=== PATIENT | female | born 1965 | race Caucasian/White ===

== ENCOUNTER 2024-02-02 10:22 | Emergency (ER) | payer BC ==
[2024-02-02 10:37] VITALS: TEMP 98.3
[2024-02-02] MEDS ORDERED: Sodium Chloride 0.9% 1000 ML 1,000 ML IV SCH (11:00)
[2024-02-02] MEDS ORDERED: Magnesium 1 Gm / 100 Ml D5W*** 100 ML IV ONE ×2 (11:02→11:42)
[2024-02-02] MEDS ORDERED: Sodium Chloride 0.9% 250 ML 250 ML IV ONE (11:02)
[2024-02-02] MEDS ORDERED: TRANDATE 20 MG/4 ML SYRINGE IV ONE (11:02)
[2024-02-02] MEDS: Sodium Chloride 0.9% 250 ML 250 ML IV SCH (11:05)
[2024-02-02] MEDS: TRANDATE 20 MG/4 ML SYRINGE IV ONE (11:05)
[2024-02-02] MEDS: Magnesium 1 Gm / 100 Ml D5W*** 100 ML IV SCH (11:06)
[2024-02-02 11:10] LABS: Absolute Neutrophil Ct (ANC) 4.12 x10^3/uL (1.56-6.13); BASOPHIL % 0.6 % (0.1-1.2); Basophil (Absolute #) 0.04 x10^3/uL (0.01-0.08); Eosinophil % 1.4 % (0.7-5.8); Eosinophil (Absolute #) 0.09 x10^3/uL (0.04-0.36); Hematocrit 44.1 % (34.1-44.9); Hemoglobin 14.6 g/dL (11.2-15.7); IMMATURE GRAN # 0.01 x10^3u/L (0.001-0.031); IMMATURE GRAN % 0.2 % (0.001-0.429); Lymphocyte (Absolute #) 1.96 x10^3/uL (1.18-3.74); Lymphocytes % 29.7 % (19.3-51.7); Mean Cell Volume 86.5 fL (79.4-94.8); Mean Corpuscular Hemoglobin 28.6 pg (25.6-32.2); Mean Corpuscular Hgb Concent. 33.1 g/dL (32.2-35.5); Monocyte (Absolute #) 0.38 x10^3/uL (0.24-0.86); Monocytes % 5.8 % (4.7-12.5); Neutrophil % 62.3 % (34.0-71.1); Platelet Count 259 x10^3/uL (182-369); Red Cell Distribution Width 13.5 % (11.7-14.4); White Blood Count 6.6 x10^3/uL (3.98-10.04)
--- NOTE | 2024-02-02 11:13 | ERPHSYRPT ---
- History of Present Illness Time Seen by Provider: 02/02/24 11:09 Source: patient, family Exam Limitations: no limitations Patient Subjective Stated Complaint: pt states that her heart has been racing for a couple of days Triage Nursing Assessment: Pt was brought to the ER by her , hypertensive, tachycardic, denies pain, pulses normal, skin n/w/d, denies chest pain, reports having a problem with tachycardia while in high school, pt took some sudafed on Saturday which started up the tachycardia, denies any other issues and doesn't appear to be in any distress Physician History: pt states that her heart has been racing for a couple of days Patient is 58-year-old female otherwise healthy except for some environmental and seasonal allergy recently moved from [place], started having some sinus problems so she started taking Sudafed for last 1 week and for last 2 days she started having a feeling that her heart has been racing. She states that she was having a problem with rapid heart rate while she was in school. Otherwise except for history of migraine few years ago which was taken care of by low-salt diet patient has been perfectly healthy according to her and her . She denies any chest pain nausea vomiting diaphoresis headache swelling on the legs abdominal pain or double vision. Timing/Duration: day(s) (Two days) Activities at Onset: none Severity of Pain-Max: none Severity of Pain-Current: none Modifying Factors: Improves With: nothing Nitro Today/Relief: no nitro taken today Aspirin Treatment Today: no aspirin today Associated Symptoms: denies symptoms Prior Chest Pain/Cardiac Workup: no prior chest pain Allergies/Adverse Reactions: eucalyptus Allergy (Verified 02/02/24 10:38) Hx Influenza Vaccination/Date Given: No Hx Pneumococcal Vaccination/Date Given: No Travel Risk - International Travel Have you traveled outside of the country in past 3 weeks: No - Emerging Infectious Disease Are you exhibiting symptoms associated with any current EIDs: No - Review of Systems Constitutional: No Fever, No Chills Eyes: No Symptoms Ears, Nose, & Throat: No Symptoms Respiratory: No Cough, No Dyspnea Cardiac: Palpitations, No Chest Pain, No Edema, No Syncope Abdominal/Gastrointestinal: No Abdominal Pain, No Nausea, No Vomiting, No Diarrhea Genitourinary Symptoms: No Dysuria Musculoskeletal: No Back Pain, No Neck Pain Skin: No Rash Neurological: No Dizziness, No Focal Weakness, No Sensory Changes Psychological: No Symptoms Endocrine: No Symptoms All Other Systems: Reviewed and Negative - Past Medical History Pertinent Past Medical History: No - Past Surgical History Past Surgical History: Yes Female Surgical History: Section Other Surgical History: rotator cuff, - Social History Smoking Status: Never smoker Exposure to second hand smoke: No Drug Use: none - Social Determinants of Health Will the patient participate in the screening: Yes Do you worry about a steady place to live?: No Do you have any problems with any of the following?: No known problems In the past 12 months,have you had to go without utilities?: No Transportation Issues: No Has anyone in your support network made you feel unsafe?: No Have you or anyone in your house had to go without enough: No - Nursing Vital Signs Nursing Vital Signs: Initial Vital Signs Temperature 98.3 F 02/02/24 10:25 Pulse Rate 118 H 02/02/24 10:25 Respiratory Rate 19 02/02/24 10:25 Blood Pressure 193/113 02/02/24 10:25 O2 Sat by Pulse Oximetry 98 02/02/24 10:25 Pain Scale Pain Intensity 0 - Physical Exam General Appearance: no apparent distress, alert Eye Exam: PERRL/EOMI, eyes nml inspection, other (AV nicking on Fundoscope exam) Ears, Nose, Throat Exam: normal ENT inspection, moist mucous membranes Neck Exam: normal inspection, non-tender, supple Respiratory Exam: normal breath sounds, lungs clear, No respiratory distress Cardiovascular Exam: regular rate/rhythm, normal heart sounds, No edema Gastrointestinal/Abdomen Exam: soft, No tenderness, No mass Back Exam: normal inspection, No CVA tenderness, No vertebral tenderness Extremity Exam: normal inspection, normal range of motion Neurologic Exam: alert, oriented x 3, cooperative, normal mood/affect, nml cerebellar function, sensation nml, No motor deficits Skin Exam: normal color, warm, dry Lymphatic Exam: No adenopathy SpO2: 98 - Course Nursing assessment & vital signs reviewed: Yes EKG Interpreted by Me: Sinus Tach, NORMAL AXIS, Non-specific ST Changes Rhythm Strip: Sinus Tachycardia Ordered Tests: Active Orders 24 hr Category Date Time Status EKG-ER Only STAT Care 02/02/24 10:55 Active CBC W DIFF Stat Lab 02/02/24 10:40 Completed CMP Stat Lab 02/02/24 10:40 Completed NT PRO BNPII Stat Lab 02/02/24 10:40 Completed TROPONIN Stat Lab 02/02/24 10:40 Completed Medication Summary Generic Name Dose Route Start Last Admin Trade Name Mary Jane PRN Reason Stop Dose Admin Magnesium Sulfate/Dextrose 100 mls @ 100 mls/hr 02/02/24 11:00 02/02/24 11:42 Magnesium 1 Gm / 100 Ml D5w IV 02/02/24 12:59 100 mls/hr Q1H GIOVANNA Administration Sodium Chloride 250 mls @ 50 mls/hr 02/02/24 11:00 02/02/24 11:05 Sodium Chloride 0.9% 250 Ml IV 02/02/24 15:59 50 mls/hr .Q5H GIOVANNA Administration Discontinued Medications Generic Name Dose Route Start Last Admin Trade Name Yoanq PRN Reason Stop Dose Admin Sodium Chloride 1,000 mls @ 50 mls/hr 02/02/24 11:00 Sodium Chloride 0.9% 1000 Ml IV 03/03/24 10:59 .Q20H GIOVANNA Labetalol HCl 10 mg 02/02/24 10:55 02/02/24 11:05 Labetalol Hcl 20 Mg/4 Ml Disp.Syringe IV 02/02/24 10:56 10 mg STAT ONE Administration Labetalol HCl Confirm 02/02/24 11:02 Labetalol Hcl 20 Mg/4 Ml Disp.Syringe Administered 02/02/24 11:03 Dose 20 mg IV .STHeTexted-Chain ONE Lab/Rad Data: Laboratory Result Diagrams 02/02/24 10:40 02/02/24 10:40 Laboratory Results 02/02/24 02/02/24 02/02/24 Range/Units 10:40 10:40 10:40 WBC 6.6 (3.98-10.04) x10^3/uL RBC 5.10 (3.93-5.22) x10^6/uL Hgb 14.6 (11.2-15.7) g/dL Hct 44.1 (34.1-44.9) % MCV 86.5 (79.4-94.8) fL MCH 28.6 (25.6-32.2) pg MCHC 33.1 (32.2-35.5) g/dL RDW 13.5 (11.7-14.4) % Plt Count 259 (182-369) x10^3/uL MPV 13.0 H (9.4-12.3) fL Gran % 62.3 (34.0-71.1) % Immature Gran % (Auto) 0.2 (0.001-0.429) % Nucleat RBC Rel Count 0.0 (0.00-0.2) % Eos # (Auto) 0.09 (0.04-0.36) x10^3/uL Immature Gran # (Auto) 0.01 (0.001-0.031) x10^3u/L Absolute Lymphs (auto) 1.96 (1.18-3.74) x10^3/uL Absolute Monos (auto) 0.38 (0.24-0.86) x10^3/uL Absolute Nucleated RBC 0.00 (0.00-0.012) x10^3u/L Lymphocytes % 29.7 (19.3-51.7) % Monocytes % 5.8 (4.7-12.5) % Eosinophils % 1.4 (0.7-5.8) % Basophils % 0.6 (0.1-1.2) % Absolute Granulocytes 4.12 (1.56-6.13) x10^3/uL Basophils # 0.04 (0.01-0.08) x10^3/uL Sodium 141 (135-145) mmol/L Potassium 4.3 (3.5-5.1) mmol/L Chloride 107 (98-107) mmol/L Carbon Dioxide 22 (22-30) mmol/L Anion Gap 15.6 H (5-15) MEQ/L BUN 13 (7-17) mg/dL Creatinine 0.72 (0.52-1.04) mg/dL Estimated GFR 96.9 ML/MIN Glucose 121 H (74-106) mg/dL Calcium 9.8 (8.4-10.2) mg/dL Total Bilirubin 0.60 (0.2-1.3) mg/dL AST 41 H (14-36) U/L ALT 49 H (0-35) U/L Alkaline Phosphatase 101 (38-126) U/L Troponin I < 0.012 (0.000-0.033) ng/mL NT-Pro-B Natriuret Pep < 20.0 (<300) pg/mL Serum Total Protein 8.6 H (6.3-8.2) g/dL Albumin 4.8 (3.5-5.0) g/dL Medical Desision Making - Independent Historian Additional History obtained from: Spouse - Discussion of managment Reviewed:: Test results, Need for additional workup - Diagnostic Testing Diagnostic test were ordered, analyzed, and reviewed by me: Yes Radiological Interpretation: Interpreted by me, Reviewed by me - Risk of complications The pt has a mod risk of morbidity or mortality based on: Need for prescription drug management - Departure Departure Disposition: Home Clinical Impression: Sinus tachycardia Hypertension Qualifiers: Hypertension type: primary hypertension Qualified Code(s): I10 - Essential (primary) hypertension Condition: Stable Critical Care Time: No Referrals: VIVEK DAVIES MD [Emergency Provider] - Follow Up with PCP/3 days Instructions: High blood pressure emergencies, Medicines for high blood pressure, Tachycardia (DC), High Blood Pressure ED, Hypertension Additional Instructions: Donot take sudafed. Take claritin or zyrtec or sheron which over the counter drugs for your allergies. Discharge/Care Plan ARMANDO ORTIZ was seen on 02/02/24 in the Emergency Room. The patient was counseled regarding Diagnosis,Lab results, Imaging studies, need for follow up and when to return to the Emergency Room. Prescriptions given: Discharge Note I have spoken with the patient and/or caregivers. I have explained the patient's condition, diagnosis and treatment plan based on the information available to me at this time. I have answered the patient's and/or caregiver's questions and addressed any concerns. The patient and/or caregivers have as good understanding of the patient's diagnosis, condition and treatment plan as can be expected at this point. The vital signs have been stable. The patient's condition is stable and appropriate for discharge from the emergency department. The patient will pursue further outpatient evaluation with the primary care physician or other designated or consulting physician as outlined in the discharge instructions. The patient and/or caregivers are agreeable to this plan of care and follow-up instructions have been explained in detail. The patient and/or caregivers have received these instruction. The patient/and or caregivers are aware that any significant change in condition or worsening of symptoms should prompt an immediate return to this or the closest emergency department or call 911. ARMANDO ORTIZ was seen on 02/02/24 n the Emergency Room. At that time you were treated for an emergent condition, during your visit Laboratory, Radiology an d/or other procedures may have been ordered. It is very important that you follow-up with your Primary Care Physician NO FAMILY DOCTOR within the next 24- 48 hours to review your Emergency Room visit and the final results of testing that was ordered. Some test results such as Urine Cultures, Blood Cultures, and other cultures if ordered will not be finalized for 24-48 hours. If you do not have a Primary Care Provider please call the medical records department at [phone] ext [phone] to obtain a copy of your results or you may sign into our patient portal to obtain these results by visiting us @ [email or web address] and completing the following steps: 1. Click on the Patient Portal link 2. Click the Patient Self Enrollment Link to complete the enrollment form and entering your 3. Once the enrollment form is completed you will receive an email with a temporary ID and password at the email address you provided. 4. Next choose a user name and password. Your user name must be at least 4 characters long and your password must be at least 4 characters long. 5. Choose a security question from the list and provide your answer to the question. If you already have signed into the Health Portal you may access your Health Care Information 29/10 by the following steps: 1. Login to our website @ [email or web address] 2. Enter your original user name and password. FAQS The [facility] Health Portal is an online tool that contains your Lab Results, Radiology Reports, Visit History, Discharge Instructions and Health Summary Lab and Radiology Results will not be available for 72 hours on the portal. The Portal is a secure site, passwords are encryted and URLs are re-written so they cannot be copied and pasted. You and authorized family members are the only ones who can access your Portal. Also there is a timeout feature that protects your information if you leave the Portal page open. If you have technical difficulty please use the Contact Us link on the page this will allow you to submit any questions you have regarding the Portal or you may contact the Medical Record Department at [phone] ext [phone]. Prescriptions: Metoprolol Succinate 25 mg Xl* [Toprol-Xl 25MG Tablets] 50 mg PO HS 30 Days #30 tab
[2024-02-02 11:34] LABS: ALBUMIN 4.8 g/dL (3.5-5.0); ALKALINE PHOSPHATASE 101 U/L (38-126); ANION GAP 15.6 MEQ/L (5-15); BLOOD UREA NITROGEN 13 mg/dL (7-17); CHLORIDE 107 mmol/L (98-107); Calcium 9.8 mg/dL (8.4-10.2); Carbon Dioxide 22 mmol/L (22-30); Creatinine 1 0.72 mg/dL (0.52-1.04); EST GLOMERULAR FILTRATION RATE 96.9 ML/MIN; Glucose 121 mg/dL (74-106); Potassium 4.3 mmol/L (3.5-5.1); SGOT/AST 41 U/L (14-36); SGPT/ALT 49 U/L (0-35); SODIUM 141 mmol/L (135-145); TROPONIN < 0.012 ng/mL (0.000-0.033); Total Protein 8.6 g/dL (6.3-8.2)
[2024-02-02 12:26] VITALS: BP 150/109; PULSE 80; RESP 15; O2SAT 97
== END 2024-02-02 12:33 | disposition home or self-care (01) ==
LOC: ED 10:22
DX: R00.0 Tachycardia, unspecified (principal); I10 Essential (primary) hypertension; Z79.899 Other long term (current) drug therapy
CPT/HCPCS: 36000; 36415; 80053; 83880; 84484; 85025; 93005; 96374; 99284; J3475